=== PATIENT | male | born 1995 | race Caucasian/White ===

== ENCOUNTER 2024-01-13 01:34 | Emergency (ER) | payer SELFPAY ==
[~2024-01-13] VITALS: Ht 175.3 cm; Wt 84.0 kg
[2024-01-13 01:39] VITALS: O2SAT 98
[2024-01-13] MEDS ORDERED: ALBU6.7H15 INH (02:57)
[2024-01-13] MEDS ORDERED: OMEP20CA14 MT (02:57)
[2024-01-13 03:25] VITALS: BP 138/95; PULSE 88; RESP 14; TEMP 98.7
== END 2024-01-13 03:26 | disposition home or self-care (01) ==
LOC: ER 01:43
DX: R10.13 Epigastric pain (principal); J45.909 Unspecified asthma, uncomplicated
CPT/HCPCS: 99283

== ENCOUNTER 2024-02-20 06:32 | Emergency (ER) | payer MEDICAID ==
[~2024-02-20] VITALS: Ht 175.3 cm; Wt 97.0 kg
[~2024-02-20 06:32] MED LIST: ALBU6.7H15 INH; OMEP20CA14 MT
[2024-02-20 06:39] VITALS: O2SAT 100
[2024-02-20 07:15] LABS: BASOPHILS % 0.5 % (0.0-2.0); EOSINOPHILS % 1.4 % (0.0-5.0); HEMATOCRIT. 44.7 % (42.0-52.0); HEMOGLOBIN. 15.3 g/dL (14.0-18.0); LYMPHOCYTES % 20.6 % (20.0-50.0); MEAN CORPUSCULAR HEMOGLOBIN 31.1 pg (28.0-32.0); MEAN CORPUSCULAR HGB CONC 34.2 g/dL (31.0-37.0); MEAN CORPUSCULAR VOLUME 90.7 fL (80.0-94.0); MEAN PLATELET VOLUME 8.9 fl (7.4-10.4); NEUTROPHILS % 71.5 % (40.0-76.0); PLATELET 270 x1000/uL (130-400); RED BLOOD CELL COUNT 4.92 mill/uL (4.7-6.1); RED CELL DISTRIBUTION WIDTH 12.9 % (11.6-14.6); WHITE BLOOD COUNT 11.9 x1000/uL (4.5-11.0)
[2024-02-20 07:20] LABS: CHLORIDE 103 mEq/L (98-107); POTASSIUM 3.5 mEq/L (3.5-5.1); SODIUM 138 mEq/L (136-145)
[2024-02-20 07:21] LABS: CALCIUM 9.4 mg/dL (8.7-10.4); CARBON DIOXIDE 28 mEq/L (21-32)
[2024-02-20 07:26] LABS: CREATININE 0.8 mg/dL (0.6-1.3); GLUCOSE 146 mg/dL (70-105); UREA NITROGEN BLOOD 11 mg/dL (9-23)
[2024-02-20 07:28] LABS: ALANINE AMINOTRANSFERASE 114 IU/L (10-49); ALBUMIN 4.7 g/dL (3.2-4.8); ASPARTATE AMINOTRANSFERASE 54 IU/L (<34); BILIRUBIN DIRECT 0.2 mg/dL (<=3.0)
[2024-02-20 07:29] LABS: BILIRUBIN TOTAL 0.6 mg/dL (0.1-1.0); PROTEIN TOTAL 7.7 g/dL (6.0-8.3)
[2024-02-20] MEDS: MAGNESIUM/ALUMINUM HYDROXIDE/SIMETHICONE 30ML UDC PO STA (07:48)
[2024-02-20] MEDS: PANTOPRAZOLE 40MG DR TABLET PO STA (07:48)
[2024-02-20] MEDS: HYDROCODONE/ACETAMINOPHEN 5/325MG TABLET PO STA (07:48)
[2024-02-20 07:52] LABS: CLARITY URINE CLEAR (CLEAR); COLOR URINE YELLOW (YELLOW); GLUCOSE URINE NEGATIVE (NEGATIVE); KETONES URINE NEGATIVE (NEGATIVE); LEUKOCYTE ESTERASE URINE NEGATIVE (NEGATIVE); NITRITE URINE NEGATIVE (NEGATIVE); OCCULT BLOOD URINE NEGATIVE (NEGATIVE); PH URINE 5.5 (4.5-8.0); PROTEIN URINE NEGATIVE (NEGATIVE); SPECIFIC GRAVITY URINE 1.026 (1.005-1.030)
[2024-02-20] MEDS ORDERED: MAG-55 PO (08:47)
[2024-02-20] MEDS ORDERED: FAMO-134 MT (08:47)
[2024-02-20] MEDS ORDERED: PANT40TA51 MT (08:47)
[2024-02-20 08:57] VITALS: BP 144/78; PULSE 66; RESP 18; TEMP 36.83628; O2SAT 100
[2024-02-25] MEDS ORDERED: METR-167 MT (13:58)
[2024-02-25] MEDS ORDERED: LEVO-65 MT (13:58)
== END 2024-02-20 08:58 | disposition home or self-care (01) ==
LOC: ER 06:34
DX: R10.13 Epigastric pain (principal)
CPT/HCPCS: 36415; 80048; 80076; 81003; 85025; 99284